=== PATIENT | male | born 1945 | race Two or more races ===

== ENCOUNTER 2020-05-26 20:08 | Inpatient (IN) | payer MEDICAID ==
[~2020-05-26] VITALS: Ht 175.3 cm; Wt 81.6 kg
[2020-05-26] MEDS ORDERED: SODIUM CHLORIDE 0.9% 1,000 ML IV ONE (22:06)
[2020-05-26 22:42] LABS: CLARITY URINE CLEAR (CLEAR); COLOR URINE YELLOW (YELLOW); KETONES URINE NEGATIVE (NEGATIVE); LEUKOCYTE ESTERASE URINE 2+ (NEGATIVE); NITRITE URINE NEGATIVE (NEGATIVE); OCCULT BLOOD URINE NEGATIVE (NEGATIVE); PROTEIN URINE NEGATIVE (NEGATIVE); SPECIFIC GRAVITY URINE 1.018 (1.005-1.030)
[2020-05-26 23:31] LABS: HEMATOCRIT. 41.7 % (42.0-52.0); HEMOGLOBIN. 14.1 g/dL (14.0-18.0); MEAN CORPUSCULAR VOLUME 91.8 fL (80.0-94.0); MEAN PLATELET VOLUME 8.3 fl (7.4-10.4); PLATELET 185 x1000/uL (130-400); RED BLOOD CELL COUNT 4.54 mill/uL (4.7-6.1); RED CELL DISTRIBUTION WIDTH 13.9 % (11.6-14.6)
[2020-05-26 23:42] LABS: CHLORIDE 107 mEq/L (98-107)
[2020-05-26 23:43] LABS: INR 1.1; PROTHROMBIN TIME 11.4 sec (9.6-11.0)
[2020-05-27] MEDS ORDERED: CEFTRIAXONE 1 G PREMIX 50 ML IV ONE
[2020-05-27] MEDS ORDERED: IOHEXOL-300 100 ML BOTTLE ONE (00:44)
[2020-05-27 01:04] LABS: PLATELET ESTIMATE NORMAL
[2020-05-27 08:00] VITALS: BP 154/90
[2020-05-27] MEDS ORDERED: MULT-1146 MT (10:27)
[2020-05-27] MEDS ORDERED: ASPI-1497 MT (10:27)
[2020-05-27] MEDS ORDERED: CLONIDINE 0.2MG TABLET PO PRN (10:30)
[2020-05-27] MEDS ORDERED: ZOLPIDEM TARTRATE 5MG TABLET PO PRN (10:30)
[2020-05-27] MEDS ORDERED: HYDROCODONE/ACETAMINOPHEN 5/325MG TABLET PO PRN (10:30)
[2020-05-27] MEDS ORDERED: ACETAMINOPHEN 650MG/20.3ML UDC PO PRN (10:30)
[2020-05-27 10:47] VITALS: BP 147/72
[2020-05-27] MEDS: ASPIRIN 81MG TABLET PO SCH (11:59)
[2020-05-27] MEDS: AMLODIPINE 10MG TABLET PO SCH (11:59)
[2020-05-27 12:00] VITALS: BP 146/92
[2020-05-27] MEDS: LEVOFLOXACIN 500MG PREMIX 100 ML IV SCH (12:00)
[2020-05-27] MEDS: SODIUM CHLORIDE 0.45% 1,000 ML IV SCH (12:00)
[2020-05-27 16:00] VITALS: BP 138/86
[2020-05-27 20:00] VITALS: BP 135/79
[2020-05-28] VITALS: BP 133/80
[2020-05-28] MEDS: SODIUM CHLORIDE 0.45% 1,000 ML IV SCH ×2 (03:26→07:55)
[2020-05-28 04:00] VITALS: BP 157/95
[2020-05-28 07:12] LABS: BASOPHILS % 0.4 % (0.0-2.0); EOSINOPHILS % 0.7 % (0.0-5.0); HEMATOCRIT. 41.3 % (42.0-52.0); HEMOGLOBIN. 14.1 g/dL (14.0-18.0); LYMPHOCYTES % 7.9 % (20.0-50.0); MEAN CORPUSCULAR HEMOGLOBIN 31.2 pg (28.0-32.0); MEAN CORPUSCULAR VOLUME 91.3 fL (80.0-94.0); MEAN PLATELET VOLUME 8.5 fl (7.4-10.4); MONOCYTES % 11.4 % (2.0-8.0); NEUTROPHILS % 79.6 % (40.0-76.0); PLATELET 170 x1000/uL (130-400); RED BLOOD CELL COUNT 4.53 mill/uL (4.7-6.1)
[2020-05-28 08:00] VITALS: BP 129/78
[2020-05-28 08:28] LABS: CHLORIDE 106 mEq/L (98-107)
[2020-05-28] MEDS: ASPIRIN 81MG TABLET PO SCH (08:57)
[2020-05-28] MEDS: AMLODIPINE 10MG TABLET PO SCH (08:57)
[2020-05-28] MEDS ORDERED: MULTIVITAMINS,THER W-MINERALS TABLET PO SCH (09:00)
[2020-05-28] MEDS: LEVOFLOXACIN 500MG PREMIX 100 ML IV SCH (11:07)
[2020-05-28 12:00] VITALS: BP 127/74
[2020-05-28 12:49] VITALS: BP 127/75
== END 2020-05-28 14:10 | disposition home or self-care (01) | DRG 720 ==
LOC: ER 20:08 → 6EST 05-27 00:40 → ENRESERV 05-27 07:31 → ER 05-27 08:14
PROVIDERS: ADMIT Internal Medicine; ATTEND Internal Medicine
DX: A41.9 Sepsis, unspecified organism (principal); N12 Tubulo-interstitial nephritis, not specified as acute or chronic; I10 Essential (primary) hypertension; E78.00 Pure hypercholesterolemia, unspecified; E86.0 Dehydration; E78.5 Hyperlipidemia, unspecified; E46 Unspecified protein-calorie malnutrition; R65.10 Systemic inflammatory response syndrome (SIRS) of non-infectious origin without acute organ dysfunction; I25.10 Atherosclerotic heart disease of native coronary artery without angina pectoris
CPT/HCPCS: 36415; 74178; 80048; 80053; 81003; 85025; 96365; 99285; J0696; J1956; J7030; Q9967

== ENCOUNTER 2023-06-24 15:30 | Emergency (ER) | payer MEDICAID ==
[~2023-06-24] VITALS: Ht 175.3 cm; Wt 80.0 kg
[~2023-06-24 15:30] MED LIST: ASPI-1497 MT; MULT-1146 MT
[2023-06-24 15:53] VITALS: O2SAT 97
[2023-06-24 16:40] LABS: BASOPHILS % 0.6 % (0.0-2.0); EOSINOPHILS % 2.7 % (0.0-5.0); HEMATOCRIT. 41.6 % (42.0-52.0); HEMOGLOBIN. 13.8 g/dL (14.0-18.0); LYMPHOCYTES % 19.9 % (20.0-50.0); MEAN CORPUSCULAR HEMOGLOBIN 31.2 pg (28.0-32.0); MEAN CORPUSCULAR HGB CONC 33.2 g/dL (31.0-37.0); MEAN PLATELET VOLUME 7.9 fl (7.4-10.4); MONOCYTES % 13.1 % (2.0-8.0); NEUTROPHILS % 63.7 % (40.0-76.0); PLATELET 217 x1000/uL (130-400); RED BLOOD CELL COUNT 4.43 mill/uL (4.7-6.1); RED CELL DISTRIBUTION WIDTH 13.4 % (11.6-14.6); WHITE BLOOD COUNT 4.9 x1000/uL (4.5-11.0)
[2023-06-24 16:46] LABS: CHLORIDE 106 mEq/L (98-107); INDEX HEMOLYSI 1 (1-3); INDEX ICTERIC 1 (1-4); INDEX LIPEMIC 1 (1-3); POTASSIUM 3.7 mEq/L (3.5-5.1); SODIUM 139 mEq/L (136-145)
[2023-06-24 17:02] LABS: ALANINE AMINOTRANSFERASE 41 IU/L (13-61); ALBUMIN 3.8 g/dL (3.4-5.0); ASPARTATE AMINOTRANSFERASE 23 IU/L (15-37); BILIRUBIN TOTAL 0.4 mg/dL (0.1-1.0); CALCIUM 9.5 mg/dL (8.5-10.1); CARBON DIOXIDE 27 mEq/L (21-32); GLUCOSE 104 mg/dL (70-105); PROTEIN TOTAL 7.9 g/dL (6.0-8.3); UREA NITROGEN BLOOD 19 mg/dL (7-21)
[2023-06-24] MEDS ORDERED: ACET-2708 MT (20:52)
[2023-06-25 03:33] LABS: CLARITY URINE CLEAR (CLEAR); COLOR URINE YELLOW (YELLOW); GLUCOSE URINE NEGATIVE (NEGATIVE); KETONES URINE NEGATIVE (NEGATIVE); LEUKOCYTE ESTERASE URINE NEGATIVE (NEGATIVE); NITRITE URINE NEGATIVE (NEGATIVE); OCCULT BLOOD URINE NEGATIVE (NEGATIVE); PROTEIN URINE NEGATIVE (NEGATIVE); SPECIFIC GRAVITY URINE 1.009 (1.005-1.030); UROBILINOGEN URINE 0.2 E.U./dL (0.2-1.0)
[2023-06-25 04:45] VITALS: BP 142/82; PULSE 72; RESP 15; TEMP 98.2
== END 2023-06-25 05:05 | disposition home or self-care (01) ==
LOC: ER 15:30
DX: R10.9 Unspecified abdominal pain (principal); I10 Essential (primary) hypertension; Z68.26 Body mass index [BMI] 26.0-26.9, adult
CPT/HCPCS: 36415; 74176; 80053; 81003; 85025; 99284